=== PATIENT | male | born 1960 | race Caucasian/White ===

== ENCOUNTER → 2018-02-12 | Outpatient (CLI) | payer BC | END | disposition home or self-care (01) | LOC: US 06:51 | DX: R14.0 Abdominal distension (gaseous) (principal) | CPT/HCPCS: 76700 ==

== ENCOUNTER → 2018-03-08 | Day surgery (SDC) | payer BC ==
[~2018-03-08] MED LIST: LIDOCAINE 1% PF 2 ML VIAL. ID; LIDOCAINE 2% PF Vial for OR 5 ML VIAL.; MORPHINE SULFATE 4 MG/ML DISP.SYRIN. IV; ONDANSETRON PF 4 MG/2 ML VIAL. IV; PROCHLORPERAZINE 10 MG/2 ML VIAL. IV; PROPOFOL 40 ML IV; fentaNYL PF VIAL 100 MCG/2 ML VIAL IV
[2018-03-08] MEDS: IV RINGERS,LACTATED 1000ML 1,000 ML IV (11:42)
== END ==
LOC: ENDOS 11:09
DX: Z12.11 Encounter for screening for malignant neoplasm of colon (principal); K62.1 Rectal polyp; F17.200 Nicotine dependence, unspecified, uncomplicated; Z83.3 Family history of diabetes mellitus; Z82.49 Family history of ischemic heart disease and other diseases of the circulatory system; Z79.82 Long term (current) use of aspirin; Z85.51 Personal history of malignant neoplasm of bladder
CPT/HCPCS: 45380; 88305; J2704

== ENCOUNTER 2020-08-09 11:00 | Emergency (ER) | payer BC, OTHER ==
[~2020-08-09] VITALS: Ht 167.6 cm; Wt 79.7 kg
[~2020-08-09 11:00] MED LIST changes: +ASPI-482 PO; +ESOM40CA PO; +LEVO500T59 PO; -LIDOCAINE 1% PF 2 ML VIAL. ID; -LIDOCAINE 2% PF Vial for OR 5 ML VIAL.; -MORPHINE SULFATE 4 MG/ML DISP.SYRIN. IV; +OMEG500C PO; +OMEP20CA16 PO; -ONDANSETRON PF 4 MG/2 ML VIAL. IV; +OXYC1TAB15 PO; -PROCHLORPERAZINE 10 MG/2 ML VIAL. IV; -PROPOFOL 40 ML IV; +SULF1TAB24 PO; +TAMS0.4C97 PO; -fentaNYL PF VIAL 100 MCG/2 ML VIAL IV
--- NOTE | 2020-08-09 11:41 | PHYS DOC ---
Past Medical History Past Medical History: GERD Past Surgical History: Other Additional Past Surgical Histo: Back surgery. Smoking Status: Current Every Day Smoker Alcohol Use: Occasionally Drug Use: None General Adult EDM: Chief Complaint: DIZZY/LIGHT HEADED HPI: HPI: The history was obtained from the patient. Patient is a 59-year-old male with PMH dyspepsia who presents with a chief complaint of lightheadedness. Patient states he has had intermittent lightheadedness for the past 4 days. He states it seems to occur directly following meals or while eating. He states last night while eating dinner he became quite sweaty. He denies any chest pain at any point. Denies any shortness of breath. Denies any abdominal pain but does note some abdominal distention. States he takes Nexium daily. States that he is never had an endoscopy or colonoscopy before. Denies any blood in stool. Denies any changes to stool caliber or consistency. Denies nausea or vomiting. Does note increase in belching. Does note occasional acidic and metallic taste in his mouth. Denies alcohol, tobacco, or drug abuse. Denies any exertional chest pain at baseline. Does note that his father from heart disease at the age of 60. Denies any history of blood clot in the legs or lungs. Denies any swelling to the extremities. Denies any history of invasive cardiac testing. States that he does follow closely with a primary care physician. No other complaints. Review of Systems: Review of Systems: Constitutional: Denies fever or chills. [] Eyes: Denies change in visual acuity. [] HENT: Denies nasal congestion or sore throat. [] Respiratory: Denies cough or shortness of breath. [] Cardiovascular: Positive for lightheadedness GI: Denies abdominal pain, nausea, vomiting, bloody stools or diarrhea. [] : Denies dysuria. [] Musculoskeletal: Denies back pain or joint pain. [] Integument: Denies rash. [] Neurologic: Denies headache, focal weakness or sensory changes. [] Endocrine: Denies polyuria or polydipsia. [] Lymphatic: Denies swollen glands. [] Psychiatric: Denies depression or anxiety. [] Heart Score: HEART Score for Chest Pain: HEART Score for Chest Pain Response (Comments) Value History Slighlty/Non-Suspicious 0 ECG Normal 0 Age >45 - < 65 1 Risk Factors No Risk Factors 0 Troponin < Normal Limit 0 Total 1 Risk Factors: Risk Factors: DM, Current or recent (<one month) smoker, HTN, HLP, family history of CAD, obesity. Risk Scores: Score 0 - 3: 2.5% MACE over next 6 weeks - Discharge Home Score 4 - 6: 20.3% MACE over next 6 weeks - Admit for Clinical Observation Score 7 - 10: 72.7% MACE over next 6 weeks - Early Invasive Strategies Allergies: Allergies: Allergies Coded Allergies Type Severity Reaction Last Updated Verified No Known Drug Allergies 03/08/18 No Physical Exam: PE: Constitutional: Well developed, well nourished, no acute distress, non-toxic appearance. [] HENT: Normocephalic, atraumatic, bilateral external ears normal, oropharynx moist, no oral exudates, nose normal. [] Eyes: PERRLA, EOMI, conjunctiva normal, no discharge. [] Neck: Normal range of motion, no tenderness, supple, no stridor. [] Cardiovascular:Heart rate regular rhythm, no murmur [] Lungs & Thorax: Bilateral breath sounds clear to auscultation [] Abdomen: Soft, nontender, nonacute abdomen. No involuntary guarding or rigidity noted. No acute peritonitis. Skin: Warm, dry, no erythema, no rash. [] Back: No tenderness, no CVA tenderness. [] Extremities: No tenderness, no cyanosis, no clubbing, ROM intact, no edema. [] Neurologic: Alert and oriented X 3, normal motor function, normal sensory function, no focal deficits noted. [] Psychologic: Affect normal, judgement normal, mood normal. [] Current Patient Data: Labs: Laboratory Tests Test 08/09/20 11:27 Glucose (Fingerstick) 126 mg/dL (70-99) H Vital Signs: Vital Signs Date Time Temp Pulse Resp B/P (MAP) Pulse Ox O2 Delivery O2 Flow Rate FiO2 08/09/20 12:30 68 123/64 (83) 97 Room Air 08/09/20 12:00 68 21 131/73 (92) 99 Room Air 08/09/20 11:30 74 141/76 (97) 98 Room Air 08/09/20 11:04 97.8 77 18 162/77 (105) 98 Room Air 97.8 EKG: EKG: [] EKG consistent with normal sinus rhythm. Ventricular rate of 72 bpm. [place] normal. Small Q waves noted in lead III. No acute ischemic changes appreciated. Radiology/Procedures: Radiology/Procedures: [facility] [address] [place] [address] IMAGING REPORT Signed PATIENT: PETROS FARRELL ACCOUNT: [id number] : 1960 LOCATION: ER AGE: 59 SEX: M EXAM STATUS: REG ER ORD. PHYSICIAN: SEAN SAGE DO REASON: epigastric pain with eating. eval RUQ PROCEDURE: ABDOMEN LTD CLINICAL HISTORY: Reason: epigastric pain with eating. COMPARISON: None available. TECHNIQUE: Limited ultrasound examination of the right upper quadrant of the abdomen was performed FINDINGS: Visualized portions of the pancreas are unremarkable. Liver: The liver measures 17.5 cm in length in the right mid clavicular line. Increased hepatic echogenicity relative to the right kidney consistent with hepatic steatosis. There is no focal abnormality of the liver. Portal venous flow is confirmed. Gallbladder/Biliary: The gallbladder is normal in appearance without evidence for cholelithiasis. Echogenic material within the gallbladder likely sludge. There is no wall thickening or pericholecystic fluid. There is no pain with direct transducer pressure over the gallbladder.The common bile duct measures 0.4 cm. The right kidney measures 13 cm in bipolar length. No focal renal lesion. No hydronephrosis. No hydroureter. There is no free fluid in the subhepatic space. IMPRESSION: 1. Gallbladder sludge without evidence for acute cholecystitis. 2. Echogenic appearance of the liver likely fatty liver. Electronically signed by: Srinivas Shelton MD (08/09/2020 12:23 PM) [id number] DICTATED and SIGNED BY: SRINIVAS SHELTON MD DATE: 08/09/201222 [] Course & Med Decision Making: Course & Med Decision Making Pertinent Labs and Imaging studies reviewed. (See chart for details) [] Patient is a well-appearing 59-year-old male who presents with chief complaint of abdominal discomfort and lightheadedness after eating food over the past 3 days. Initial vital signs unremarkable. Exam overall reassuring. No reproducible abdominal tenderness. Basic labs were obtained and were unremarkable including normal troponin. Ultrasound does show some biliary and gallbladder sludge. I do feel this could explain his symptoms. Overall very low suspicion for ACS versus PE. Low risk heart score by my estimation. He states he does have close follow-up with his primary care physician. T imaging will be deferred as all labs been reassuring and examination reveals no reproducible pain. Patient is agreeable to discharge home. He will be discharged home with Bentyl and Zofran. Strict return precautions were discussed and understood. Stable for discharge home. Dragon Disclaimer: Dragon Disclaimer: This electronic medical record was generated, in whole or in part, using a voice recognition dictation system. Departure Departure Impression: Primary Impression: Lightheaded Additional Impression: Dyspepsia Disposition: HOME, SELF-CARE Condition: STABLE Referrals: NICOLE NIETO MD (PCP) Patient Instructions: Biliary Colic Additional Instructions: Please follow-up with your primary care physician in the next 2 to 3 days. Discharge Abdominal Pain Re-Check Precautions: I'm unsure of the specific cause of your abdominal pain. However, at this point I feel that you are low risk for a life threatening emergency and that disc harge from the Emergency Department is safe. There is a very small possibility that you are just too early in your clinical course for our physical exam/labs/imaging to ascertain whether or not you have an emergent condition that could potentially cause permanent disability or be life threatening. As such, it is very important that you follow up with your primary doctor or return to the Emergency Department in 12-24 hours for re-assessment and further evaluation if clinically indicated. If you develop new or worsening symptoms then you should return to the Emergency Department immediately. Home Care Instructions: Abdominal Pain Many things may cause abdominal pain. Your ER visit might not show the exact reason you are having pain. In some cases, additional time is needed to determine if the cause is serious. Therefore you may be told to go home and watch for any changes or worsening in your condition. Before that, we may not know if you need more testing, or if hospitalization or surgery is necessary. If its not something serious, the pain may go away without treatment or get better with simple things like avoiding certain foods or medications. In the ER, your doctor asks you questions, examines you and in some cases, may order tests. These help doctors decide if the pain is from something serious. Tests are not always done and may not provide a definite answer. There can still be a problem, even with normal test results. Abdominal pain may be caused by something serious (like appendicitis), which is not obvious right away. Because of this, another checkup is needed to make sure you are OK. It is VERY IMPORTANT to follow up for a repeat exam, especially if you have any symptoms that are not going away or are getting worse. We recommend that you RETURN TO THE EMERGENCY ROOM IN 8-12 HOURS to be rechecked. If you cannot, you may follow up with your primary care doctor or clinic. It is important that you follow all of the instructions below. RETURN TO THE EMERGENCY ROOM IMMEDIATELY IF: The pain does not go away or gets worse. You have a fever. You keep throwing up and cannot keep anything down. You pass bloody or black stools. You develop new symptoms. HOME CARE INSTRUCTIONS Come back to the ER (or see your doctor) in 8-12 hours. DO NOT take laxatives unless directed by your doctor. Avoid the use of alcohol Take pain medicine only as directed by your doctor. Only take [id number] or prescription medicine as directed by your doctor. Try a clear liquid diet (broth, tea, jello, water) for the next 12-24 hours. Slowly move to a bland diet as tolerated. Do not eat greasy, fatty or spicy foods. Once you start getting better, go back to a normal, healthy diet, slowly over a few days. DISCHARGE PT INSTRUCTIONS: YOU HAVE BEEN EVALUATED FOR ABDOMINAL PAIN. HOWEVER, WE ARE UNABLE TO PROVIDE A DEFINITE CAUSE OF YOUR SYMPTOMS. EVEN THOUGH YOUR TESTS MAY HAVE BEEN NORMAL, YOU STILL COULD HAVE A SERIOUS CAUSE FOR YOUR ABDOMINAL PAIN, INCLUDING APPENDICITIS. THE BEST TEST TO DETERMINE IF YOU HAVE A SERIOUS CAUSE IS RE-EXAMINATION OVER TIME. WE USED TO ADMIT PATIENTS TO THE HOSPITAL FOR THIS, BUT CAN NOW ALLOW YOU TO GO HOME, & RETURN TO OUR ER THE NEXT DAY FOR RE- EXAMINATION. THUS, WE WOULD LIKE YOU TO RETURN TO OUR ER TOMORROW FOR YOUR RE- EVALUATION. (IF YOUR SYMPTOMS HAVE GONE AWAY, THEN YOU DO NOT NEED TO RETURN.) IF YOUR SYMPTOMS GET WORSE BETWEEN NOW & THEN, YOU SHOULD RETURN IMMEDIATELY & NOT WAIT UNTIL TOMORROW. SYMPTOMS TO LOOK FOR WORSENING PAIN, HIGH FEVER, PERSISTENT VOMITING [NOT CONTROLLED BY MEDICINE], AND/OR OVERALL WORSENING OF YOUR CONDITION. Scripts Ondansetron Hcl (ZOFRAN) 4 Mg Tablet 4 MG PO PRN TID PRN for NAUSEA, #15 nausea/vomiting Prov: SEAN SAGE DO 08/09/20 Dicyclomine Hcl (DICYCLOMINE HCL) 20 Mg Tablet 1 TAB PO QID for 7 Days, #28 TAB 1 Refill Prov: SEAN SAGE DO 08/09/20 Justicifation of Admission Dx: Justifications for Admission: Justification of Admission Dx: N/A SEAN SAGE DO Aug 09, 2020 11:41
[2020-08-09 12:03] LABS: BASO # 0.1 x10^3/uL (0.0-0.2); BASO % 1 % (0-3); EOS # 0.1 x10^3/uL (0.0-0.7); EOS % 1 % (0-3); HEMATOCRIT 48.6 % (39.0-53.0); HEMOGLOBIN 17.1 g/dL (13.0-17.5); LYMPH # 2.4 x10^3/uL (1.0-4.8); LYMPH % 23 % (24-48); MEAN CORPUSCULAR HEMOGLOBIN 31 pg (25-35); MEAN CORPUSCULAR HGB CONC 35 g/dL (31-37); MEAN CORPUSCULAR VOLUME 88 fL (79-100); MONO # 0.8 x10^3/uL (0.0-1.1); MONO % 8 % (0-9); NEUT # 7.2 x10^3/uL (1.8-7.7); NEUT % 68 % (31-73); PLATELET COUNT 151 x10^3/uL (140-400); RED BLOOD COUNT 5.52 x10^6/uL (4.30-5.70); RED CELL DISTRIBUTION WIDTH 12.7 % (11.5-14.5); WHITE BLOOD COUNT 10.6 x10^3/uL (4.0-11.0)
[2020-08-09 12:18] LABS: CALCIUM 9.4 mg/dL (8.5-10.1); CREATININE 0.9 mg/dL (0.7-1.3); GFR 85.8; POTASSIUM 4.2 mmol/L (3.5-5.1)
[2020-08-09 12:23] LABS: ALBUMIN 3.8 g/dL (3.4-5.0); TOTAL BILIRUBIN 0.7 mg/dL (0.2-1.0); TOTAL PROTEIN 7.6 g/dL (6.4-8.2)
--- NOTE | 2020-08-09 12:26 | RAD ---
CLINICAL HISTORY: Reason: epigastric pain with eating. COMPARISON: None available. TECHNIQUE: Limited ultrasound examination of the right upper quadrant of the abdomen was performed FINDINGS: Visualized portions of the pancreas are unremarkable. Liver: The liver measures 17.5 cm in length in the right mid clavicular line. Increased hepatic echogenicity relative to the right kidney consistent with hepatic steatosis. There is no focal abnormality of the liver. Portal venous flow is confirmed. Gallbladder/Biliary: The gallbladder is normal in appearance without evidence for cholelithiasis. Echogenic material within the gallbladder likely sludge. There is no wall thickening or pericholecystic fluid. There is no pain with direct transducer pressure over the gallbladder.The common bile duct measures 0.4 cm. The right kidney measures 13 cm in bipolar length. No focal renal lesion. No hydronephrosis. No hydroureter. There is no free fluid in the subhepatic space. IMPRESSION: 1. Gallbladder sludge without evidence for acute cholecystitis. 2. Echogenic appearance of the liver likely fatty liver. Electronically signed by: Srinivas Gray MD (08/09/2020 12:23 PM) [id number]
[2020-08-09 13:00] VITALS: BP 114/69
[2020-08-09] MEDS ORDERED: ONDA4TAB7 PO (13:04)
[2020-08-09] MEDS ORDERED: DICY20TA3 PO (13:04)
== END 2020-08-09 13:35 | disposition home or self-care (01) ==
LOC: ER 11:00
DX: R42 Dizziness and giddiness (principal); R10.13 Epigastric pain
CPT/HCPCS: 36415; 76705; 80053; 82962; 83690; 84484; 85025; 99285

== ENCOUNTER 2020-08-12 09:45 | Emergency (ER) | payer OTHER ==
[~2020-08-12] VITALS: Ht 170.2 cm; Wt 77.2 kg
[~2020-08-12 09:45] MED LIST changes: +DICY20TA3 PO; +ONDA4TAB7 PO
[2020-08-12 11:01] LABS: BASO # 0.1 x10^3/uL (0.0-0.2); BASO % 1 % (0-3); EOS # 0.1 x10^3/uL (0.0-0.7); EOS % 1 % (0-3); HEMATOCRIT 47.9 % (39.0-53.0); HEMOGLOBIN 16.7 g/dL (13.0-17.5); LYMPH # 2.5 x10^3/uL (1.0-4.8); LYMPH % 27 % (24-48); MEAN CORPUSCULAR HEMOGLOBIN 31 pg (25-35); MEAN CORPUSCULAR HGB CONC 35 g/dL (31-37); MEAN CORPUSCULAR VOLUME 87 fL (79-100); MONO # 0.8 x10^3/uL (0.0-1.1); MONO % 8 % (0-9); NEUT # 5.9 x10^3/uL (1.8-7.7); NEUT % 64 % (31-73); PLATELET COUNT 154 x10^3/uL (140-400); RED BLOOD COUNT 5.48 x10^6/uL (4.30-5.70); RED CELL DISTRIBUTION WIDTH 12.6 % (11.5-14.5); WHITE BLOOD COUNT 9.3 x10^3/uL (4.0-11.0)
[2020-08-12 11:10] LABS: CALCIUM 9.5 mg/dL (8.5-10.1); GFR 75.7; POTASSIUM 3.9 mmol/L (3.5-5.1)
[2020-08-12 11:11] LABS: PROTHROMBIN TIME PATIENT 12.9 SEC (11.7-14.0)
[2020-08-12 11:15] LABS: ALBUMIN/GLOBULIN RATIO 1.1 (1.0-1.7); TOTAL BILIRUBIN 0.7 mg/dL (0.2-1.0); TOTAL PROTEIN 7.7 g/dL (6.4-8.2)
[2020-08-12] MEDS ORDERED: LIDO:MAALOX 1:1 20 ML SINGLE DOSE. SWSW ONE (12:15)
[2020-08-12] MEDS ORDERED: IOHEXOL 300 MG/ML 100ML VIAL. IV ONE (12:15)
--- NOTE | 2020-08-12 12:35 | RAD ---
RS Compliance Statement: One or more of the following individualized dose reduction techniques were utilized for this examination: 1. Automated exposure control 2. Adjustment of the mA and/or kV according to patient size 3. Use of iterative reconstruction technique CT HEAD WITHOUT CONTRAST History: Reason: dizziness off and on for a week Comparison: None. Procedure: Axial images are obtained of the head from the skull base through the vertex without IV contrast. Findings: The ventricles and sulci are normal for the patient's age. No mass-effect, midline shift, hemorrhage, extra-axial fluid collection, or obvious acute infarction is identified. Basilar cisterns are patent. Bone windows demonstrate no acute calvarial abnormality. The visualized paranasal sinuses are clear. Mastoid air cells are well aerated. IMPRESSION: No acute intracranial abnormality. Electronically signed by: Carlos Couch MD (08/12/2020 12:32 PM) [id number]
--- NOTE | 2020-08-12 12:46 | RAD ---
EXAM: CT Abdomen and Pelvis with IV contrast INDICATION: Reason: abdominal pain for a week / Spl. Instructions: [id number] 75ml, hx bladder ca w surgery / History: TECHNIQUE: Multi-detector row CT images were acquired from the lung bases through the abdomen and pelvis with the use of IV contrast. Sagittal and coronal images were acquired from the transaxial data. All CT scans performed at this facility utilize dose optimization techniques as appropriate to the exam, including the following: Automated exposure control and adjustment of the mA and/or KV according to patient size (this includes techniques or standardized protocols for targeted exams where dose is indication/reason for exam). IV CONTRAST: Administered ORAL CONTRAST: Not administered COMPARISON: Noncontrast abdomen pelvis CT of 12/04/2015 FINDINGS: LOWER CHEST: Stable lingular hamartoma. LIVER: Unremarkable BILIARY SYSTEM: Gallbladder is unremarkable. Bile ducts are not dilated. PANCREAS: Unremarkable SPLEEN: Unremarkable ADRENALS: Unremarkable KIDNEYS & URETERS: Interval development of bilateral renal cortical scarring, worse on the left but no mass, abnormal enhancement or hydronephrosis or hydroureter is seen. No radiopaque stones identified on this study with IV contrast limiting sensitivity for detection of small kidney stones. BLADDER: Unremarkable REPRODUCTIVE ORGANS: The prostate gland measures 4.5 cm in diameter. GASTROINTESTINAL: The stomach, small bowel, and colon are unremarkable. The appendix is normal. 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 IMPRESSION: No acute abdominal or pelvic pathology. No specific findings to explain abdominal pain noted. Electronically signed by: Aisha Amaral MD (08/12/2020 12:43 PM) [id number]
--- NOTE | 2020-08-12 13:01 | PHYS DOC ---
Past Medical History Past Medical History: Cancer, GERD, Other Additional Past Medical Histor: BLADDER CA Past Surgical History: Other Additional Past Surgical Histo: Back surgery,BLADDER Smoking Status: Current Every Day Smoker Alcohol Use: Occasionally Drug Use: None General Adult EDM: Chief Complaint: ABDOMINAL PAIN HPI: HPI: Patient is a 60 year old male who presented to ER today for evaluation of epigastric abdominal pain associated with feeling dizzy and dry mouth. Patient said pain is burning and aching in nature. Pain happened after eating. Patient has experienced this symptom off and on for several weeks. Patient was seen here on last Monday on August 09 for same problem. Patient had lab work and ultrasound of his gallbladder show he has some fatty liver but no gallstone problem. Patient was discharged home, was on Bentyl and nausea medication. Patient is already on Nexium for acid reflux. Patient went to see his family physician who ordered an outpatient stress test and is scheduled for sometime next week. Patient denies any history of heart problem, denies any history of blood clot disorder. Patient denies any family history of Heart disease. He denies drinking alcohol. Patient denies any recent travel or operation. Patient said this morning after drinking coffee and eating a muffin patient started having epigastric pain feeling sweaty so he came in for evaluation. Review of Systems: Review of Systems: Constitutional: Denies fever or chills. [] Eyes: Denies change in visual acuity. [] HENT: Denies nasal congestion or sore throat. [] Respiratory: Denies cough or shortness of breath. [] Cardiovascular: Denies chest pain or edema. [] GI: Denies abdominal pain, nausea, vomiting, bloody stools or diarrhea. [] : Denies dysuria. [] Musculoskeletal: Denies back pain or joint pain. [] Integument: Denies rash. [] Neurologic: Denies headache, focal weakness or sensory changes. [] Endocrine: Denies polyuria or polydipsia. [] Lymphatic: Denies swollen glands. [] Psychiatric: Denies depression or anxiety. [] Heart Score: HEART Score for Chest Pain: HEART Score for Chest Pain Response (Comments) Value History Slighlty/Non-Suspicious 0 ECG Normal 0 Age >45 - < 65 1 Risk Factors 1 or 2 Risk Factors 1 Troponin < Normal Limit 0 Total 2 Risk Factors: Risk Factors: DM, Current or recent (<one month) smoker, HTN, HLP, family history of CAD, obesity. Risk Scores: Score 0 - 3: 2.5% MACE over next 6 weeks - Discharge Home Score 4 - 6: 20.3% MACE over next 6 weeks - Admit for Clinical Observation Score 7 - 10: 72.7% MACE over next 6 weeks - Early Invasive Strategies Current Medications: Current Medications Medications (Trade) Dose Ordered Sig/Esequiel Start Time Stop Time Status Last Admin Dose Admin Iohexol (Omnipaque 300 Mg/ml) 75 ml 1X ONCE 08/12/20 12:15 08/12/20 12:16 DC 08/12/20 12:28 75 ML Multi-Ingredient Mouthwash/Gargle (Gi Cocktail) 20 ml 1X ONCE 08/12/20 12:15 08/12/20 12:16 DC 08/12/20 12:13 20 ML Allergies: Allergies: Allergies Coded Allergies Type Severity Reaction Last Updated Verified No Known Drug Allergies 03/08/18 No Physical Exam: PE: Constitutional: Well developed, well nourished, no acute distress, non-toxic appearance. [] HENT: Normocephalic, atraumatic, bilateral external ears normal, oropharynx moist, no oral exudates, nose normal. [] Eyes: PERRLA, EOMI, conjunctiva normal, no discharge. [] Neck: Normal range of motion, no tenderness, supple, no stridor. [] Cardiovascular:Heart rate regular rhythm, no murmur [] Lungs & Thorax: Bilateral breath sounds clear to auscultation [] Abdomen: Bowel sounds normal, soft, no tenderness, no masses, no pulsatile masses. [] Skin: Warm, dry, no erythema, no rash. [] Back: No tenderness, no CVA tenderness. [] Extremities: No tenderness, no cyanosis, no clubbing, ROM intact, no edema. [] Neurologic: Alert and oriented X 3, normal motor function, normal sensory f unction, no focal deficits noted. [] Psychologic: Affect normal, judgement normal, mood normal. [] Current Patient Data: Labs: Laboratory Tests Test 08/12/20 10:40 White Blood Count 9.3 x10^3/uL (4.0-11.0) Red Blood Count 5.48 x10^6/uL (4.30-5.70) Hemoglobin 16.7 g/dL (13.0-17.5) Hematocrit 47.9 % (39.0-53.0) Mean Corpuscular Volume 87 fL (79-100) Mean Corpuscular Hemoglobin 31 pg (25-35) Mean Corpuscular Hemoglobin Concent 35 g/dL (31-37) Red Cell Distribution Width 12.6 % (11.5-14.5) Platelet Count 154 x10^3/uL (140-400) Neutrophils (%) (Auto) 64 % (31-73) Lymphocytes (%) (Auto) 27 % (24-48) Monocytes (%) (Auto) 8 % (0-9) Eosinophils (%) (Auto) 1 % (0-3) Basophils (%) (Auto) 1 % (0-3) Neutrophils # (Auto) 5.9 x10^3/uL (1.8-7.7) Lymphocytes # (Auto) 2.5 x10^3/uL (1.0-4.8) Monocytes # (Auto) 0.8 x10^3/uL (0.0-1.1) Eosinophils # (Auto) 0.1 x10^3/uL (0.0-0.7) Basophils # (Auto) 0.1 x10^3/uL (0.0-0.2) Prothrombin Time 12.9 SEC (11.7-14.0) Prothrombin Time INR 1.0 (0.8-1.1) Activated Partial Thromboplast Time 29 SEC (24-38) Sodium Level 137 mmol/L (136-145) Potassium Level 3.9 mmol/L (3.5-5.1) Chloride Level 103 mmol/L (98-107) Carbon Dioxide Level 28 mmol/L (21-32) Anion Gap 6 (6-14) Blood Urea Nitrogen 15 mg/dL (8-26) Creatinine 1.0 mg/dL (0.7-1.3) Estimated GFR (Cockcroft-Gault) 75.7 BUN/Creatinine Ratio 15 (6-20) Glucose Level 109 mg/dL (70-99) H Calcium Level 9.5 mg/dL (8.5-10.1) Magnesium Level 2.0 mg/dL (1.8-2.4) Total Bilirubin 0.7 mg/dL (0.2-1.0) Aspartate Amino Transferase (AST) 29 U/L (15-37) Alanine Aminotransferase (ALT) 39 U/L (16-63) Alkaline Phosphatase 49 U/L (46-116) Troponin I Quantitative < 0.017 ng/mL (0.000-0.055) Total Protein 7.7 g/dL (6.4-8.2) Albumin 4.0 g/dL (3.4-5.0) Albumin/Globulin Ratio 1.1 (1.0-1.7) Laboratory Tests 08/12/20 10:40 Laboratory Tests 08/12/20 10:40 Vital Signs: Vital Signs Date Time Temp Pulse Resp B/P (MAP) Pulse Ox O2 Delivery O2 Flow Rate FiO2 08/12/20 10:18 97.8 70 15 140/83 (102) 96 Room Air 97.8 EKG: EKG: EKG was done at 1025, heart rate of 68 bpm, normal sinus rhythm, no ST segment elevation. Radiology/Procedures: Radiology/Procedures: [][facility] [address] [place] [address] IMAGING REPORT Signed PATIENT: PETROS FARRELL ACCOUNT: [id number] : 1960 LOCATION: ER AGE: 60 SEX: M EXAM STATUS: REG ER ORD. PHYSICIAN: KELI MOROCHO DO REASON: abdominal pain for a week PROCEDURE: CT ABD PELV W/ IV CONTRST ONLY EXAM: CT Abdomen and Pelvis with IV contrast INDICATION: Reason: abdominal pain for a week / Spl. Instructions: [id number] 75ml, hx bladder ca w surgery / History: TECHNIQUE: Multi-detector row CT images were acquired from the lung bases through the abdomen and pelvis with the use of IV contrast. Sagittal and coronal images were acquired from the transaxial data. All CT scans performed at this facility utilize dose optimization techniques as appropriate to the exam, including the following: Automated exposure control and adjustment of the mA and/or KV according to patient size (this includes techniques or standardized protocols for targeted exams where dose is indication/reason for exam). IV CONTRAST: Administered ORAL CONTRAST: Not administered COMPARISON: Noncontrast abdomen pelvis CT of 12/04/2015 FINDINGS: LOWER CHEST: Stable lingular hamartoma. LIVER: Unremarkable BILIARY SYSTEM: Gallbladder is unremarkable. Bile ducts are not dilated. PANCREAS: Unremarkable SPLEEN: Unremarkable ADRENALS: Unremarkable KIDNEYS & URETERS: Interval development of bilateral renal cortical scarring, worse on the left but no mass, abnormal enhancement or hydronephrosis or hydroureter is seen. No radiopaque stones identified on this study with IV contrast limiting sensitivity for detection of small kidney stones. BLADDER: Unremarkable REPRODUCTIVE ORGANS: The prostate gland measures 4.5 cm in diameter. GASTROINTESTINAL: The stomach, small bowel, and colon are unremarkable. The appendix is normal. 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 IMPRESSION: No acute abdominal or pelvic pathology. No specific findings to explain abdominal pain noted. Electronically signed by: Osorio Amaral MD (08/12/2020 12:43 PM) [id number] DICTATED and SIGNED BY: OSORIO AMARAL MD DATE: 08/12/20 1243 [facility] [address] [place] [address] IMAGING REPORT Signed PATIENT: PETROS FARRELL ACCOUNT: [id number] : 1960 LOCATION: ER AGE: 60 SEX: M EXAM STATUS: REG ER ORD. PHYSICIAN: KELI MOROCHO DO REASON: dizziness off and on for a week PROCEDURE: CT HEAD WO CONTRAST PQRS Compliance Statement: One or more of the following individualized dose reduction techniques were utilized for this examination: 1. Automated exposure control 2. Adjustment of the mA and/or kV according to patient size 3. Use of iterative reconstruction technique CT HEAD WITHOUT CONTRAST History: Reason: dizziness off and on for a week Comparison: None. Procedure: Axial images are obtained of the head from the skull base through the vertex without IV contrast. Findings: The ventricles and sulci are normal for the patient's age. No mass-effect, midline shift, hemorrhage, extra-axial fluid collection, or obvious acute infarction is identified. Basilar cisterns are patent. Bone windows demonstrate no acute calvarial abnormality. The visualized paranasal sinuses are clear. Mastoid air cells are well aerated. IMPRESSION: No acute intracranial abnormality. Electronically signed by: Carlos Couch MD (08/12/2020 12:32 PM) [id number] DICTATED and SIGNED BY: CARLOS COUCH MD DATE: 08/12/20 1232 Course & Med Decision Making: Course & Med Decision Making Pertinent Labs and Imaging studies reviewed. (See chart for details) Patient is a 60-year-old male who presented to ER due to epigastric abdominal pain off and on for several weeks. Patient was seen here last Monday for the same problem, ultrasound did not show any gallstone formation. His lab work was within normal limits. Patient was seen by his family physician, is scheduled for outpatient stress test. CT scan of head head and hip abdomen pelvis today did not show any acute problem. Patient has history of acid reflux, he is on Nexium. It is suspected that patient has gastritis, uppercase of peptic ulcer. Patient will be at Carafate and Pepcid. Patient will need to take Nexium, Carafate and Pepcid together. Patient will need to follow-up with his family physician for referral to GI specialist for an EGD. Dragon Disclaimer: Dragon Disclaimer: This electronic medical record was generated, in whole or in part, using a voice recognition dictation system. Departure Departure Impression: Primary Impression: Gastritis Disposition: 01 HOME, SELF-CARE Condition: STABLE Referrals: NICOLE NIETO MD (PCP) PLEASE FOLLOW UP WITH YOUR DOCTOR FOR A REFERRAL TO A GI SPECIALIST FOR FURTHER EVALUATION AND TREATMENT Patient Instructions: Gastritis, Adult Additional Instructions: Thank you for visiting our Emergency Department. We appreciate you trusting us with your care. If any additional problems come up don't hesitate to return to visit us. Please follow up with your primary care provider so they can plan additional care if needed and know about the problem that you had. If symptoms worsen come back to the Emergency Department. Any concerning symptoms that start such as chest pain, shortness of air, weakness or numbness on one side of the body, running high fevers or any other concerning symptoms return to the ER. Scripts Famotidine (PEPCID) 20 Mg Tablet 20 MG PO HS for 30 Days, #30 TAB Prov: KELI MOROCHO DO 08/12/20 Sucralfate (CARAFATE) 1 Gm Tablet 1 TAB PO QID for 14 Days, #56 TAB 0 Refills Prov: KELI MOROCHO DO 08/12/20 Justicifation of Admission Dx: Justifications for Admission: Justification of Admission Dx: N/A KELI MOROCHO DO Aug 12, 2020 13:01
[2020-08-12] MEDS ORDERED: SUCR1TAB35 PO (13:17)
[2020-08-12] MEDS ORDERED: FAMO-63 PO (13:17)
[2020-08-12 13:24] VITALS: BP 114/67
--- NOTE | 2020-08-12 14:28 | EKG ---
[facility] [address] [place] [address] Test Date: 2020-08-12 Test Time: 10:25:07 Pat Name: PETROS FARRELL Department: Room: Gender: Hide Salter: : 1960 Requested By: KELI MOROCHO Order Number: [id number] Reading MD: Measurements Intervals [place] Rate: 68 P: 26 WY: 142 QRS: 56 QRSD: 98 T: 29 QT: 378 QTc: 402 Interpretive Statements SINUS RHYTHM NORMAL ECG RI6.02 No previous ECG available for comparison
== END 2020-08-12 13:45 | disposition home or self-care (01) ==
LOC: ER 09:45
DX: K29.70 Gastritis, unspecified, without bleeding (principal); R42 Dizziness and giddiness; K21.9 Gastro-esophageal reflux disease without esophagitis; F17.200 Nicotine dependence, unspecified, uncomplicated; Z85.51 Personal history of malignant neoplasm of bladder
CPT/HCPCS: 36415; 70450; 74177; 80053; 83735; 84484; 85025; 85610; 85730; 93005; 99285; Q9967

== ENCOUNTER → 2020-09-17 | Outpatient (CLI) | payer OTHER ==
[~2020-09-17] VITALS: Ht 170.2 cm; Wt 77.1 kg
[~2020-09-17] MED LIST changes: +FAMO-63 PO; +SINCALIDE 1.54 MCG in IV NORMAL SALINE 50ML 30 ML IV ONE; +SUCR1TAB35 PO
--- NOTE | 2020-09-17 11:12 | RAD ---
EXAM: Nuclear hepatobiliary scan. HISTORY: Epigastric pain. TECHNIQUE: Following intravenous administration of 5.5 mCi Tc 99m Choletec, anterior images of the abdomen were obtained at five minute intervals through one hour. Subsequently, 1.54 mcg sincalide was administered and additional images to assess gallbladder ejection fraction were obtained. FINDINGS: There is prompt radiotracer uptake by the liver. No focal defect is seen. There is normal excretion into the biliary tree. The gallbladder is visualized within 5 minutes and there is free flow into the duodenum. The gallbladder ejection fraction is 20 percent. IMPRESSION: Decreased gallbladder ejection fraction of 20 percent. Electronically signed by: Nikole Manjarrez MD (09/17/2020 11:09 AM) [id number]
== END ==
LOC: NM 09:11
PROVIDERS: ATTEND Internal Medicine Gastroenterology
DX: R10.13 Epigastric pain (principal)
CPT/HCPCS: 78227; A9537; J2805

== ENCOUNTER → 2020-09-21 | Outpatient (CLI) | payer OTHER ==
[~2020-09-21] MED LIST changes: +REGADENOSON 0.4 MG/5 ML DISP.SYRIN. IV ONE; -SINCALIDE 1.54 MCG in IV NORMAL SALINE 50ML 30 ML IV ONE
--- NOTE | 2020-09-21 12:05 | CARD ---
MR#: [id number] Date of Study: 09/21/2020 Ordering Physician: MARKUS SMITH, Referring Physician: MARKUS SMITH, Tech: Christen Villafana APPROVED REPORT EXAM: Two-dimensional and M-mode echocardiogram with Doppler and color Doppler. Other Information Quality : AverageHR: 72bpm INDICATION Chest Pain RISK FACTORS Smoking 2D DIMENSIONS RVDd3.8 (2.9-3.5cm)Left Atrium(2D)3.2 (1.6-4.0cm) IVSd0.9 (0.7-1.1cm)Aortic Root(2D)3.6 (2.0-3.7cm) LVDd4.8 (3.9-5.9cm)LVOT Diameter2.2 (1.8-2.4cm) PWd0.8 (0.7-1.1cm)LVDs2.7 (2.5-4.0cm) FS (%) 43.8 %SV81.4 ml LVEF(%)74.9 (>50%) Aortic Valve AoV Peak Everette.102.2cm/sAoV VTI16.8cm AO Peak GR.4.2mmHgLVOT Peak Everette.87.6cm/s LVOT VTI 16.89cmAO Mean GR.2mmHg AMANDA (VMAX)2.76wa9FNS (VTI)3.69cm2 AI P 1/2 Qjnr023zl Mitral Valve MV E Skljvbyg80.8cm/sMV DECEL ESRH393zm MV A Hxvokrks68.9cm/sMV E Mean Gr.1mmHg MV DMU62xyT/A Ratio0.7 MVA (PHT)4.52cm2 TDI E/Lateral E'4.9E/Medial E'6.6 Pulmonary Valve PV Peak Umsyklle87.8cm/sPV Peak Grad.4mmHg Tricuspid Valve TR P. Aagwlfbd321si/sRAP DWUAVXQB4suFx TR Peak Gr.55nbSwOGLJ16wxIa Pulmonary Vein S1 Wzruvfbp76.5cm/sD2 Jkpfrcvq59.5cm/s PVa ivsobvhe575ekzf LEFT VENTRICLE The left ventricle is normal size. There is normal left ventricular wall thickness. The left ventricu lar systolic function is normal and the ejection fraction is within normal range. The Ejection Fracti on is 50-55%. There is normal LV segmental wall motion. Transmitral Doppler flow pattern is Grade I-a bnormal relaxation pattern. RIGHT VENTRICLE The right ventricle is normal size. There is normal right ventricular wall thickness. The right ventr icular systolic function is normal. ATRIA The left atrium size is normal. The right atrium size is normal. The interatrial septum is intact wit h no evidence for an atrial septal defect or patent foramen ovale as noted on 2-D or Doppler imaging. AORTIC VALVE The aortic valve is normal in structure and function. Doppler and Color Flow revealed trace aortic re gurgitation. There is no significant aortic valvular stenosis. Calculated aortic valve area is 3.11 c m2 with maximum pressure gradient of 5 mmHg and mean pressure gradient of 3 mmHg. MITRAL VALVE The mitral valve is normal in structure and function. There is no evidence of mitral valve prolapse. There is no mitral valve stenosis. Doppler and Color-flow revealed trace mitral regurgitation. TRICUSPID VALVE The tricuspid valve is normal in structure and function. Doppler and Color Flow revealed trace tricus pid regurgitation with an estimated PAP of 33 mmHg. There is no tricuspid valve stenosis. PULMONIC VALVE The pulmonic valve is not well visualized. Doppler and Color Flow revealed no pulmonic valvular regur gitation. There is no pulmonic valvular stenosis. GREAT VESSELS The aortic root is normal in size. The IVC is normal in size and collapses >50% with inspiration. PERICARDIAL EFFUSION There is no evidence of significant pericardial effusion. Critical Notification Critical Value: No <Conclusion> The left ventricular systolic function is normal and the ejection fraction is within normal range. Th e Ejection Fraction is 50-55%. There is normal LV segmental wall motion. Signed by : Dinesh Escobar, Electronically Approved : 09/21/2020 12:05:09
--- NOTE | 2020-09-21 13:03 | RAD ---
MR#: [id number] Date of Study: 09/21/2020 Ordering Physician: MARKUS SMITH, Referring Physician: WILBER OJEDA Tech: RITA Freed, ARRT (R) (N) APPROVED REPORT Test Type: Pharmacological Stress Nurse/Tech: Mona Parr R.N. Test Indications: chest pain Cardiac History: Family history Medications: See Electronic Medical Record Medical History: See Electronic Medical Record Resting ECG: NSR Resting Heart Rate: 69 bpm Resting Blood Pressure: 120/65mmHg Pretest Chest Pain: No chest pain Nurse/Tech Notes S1S2, lungs sound clear Consent: The procedure was explained to the patient in lay terms. Informed consent was witnessed. Chetan eout was entered into CME. History and Stress Test performed by Mona Parr R.N. Pharm. Details Pharmacologic stress testing was performed using 0.4mg per 5ml of regadenoson given intravenously ove r 7-10 seconds. Stress Symptoms No chest pain or symptoms. POST EXERCISE Reason for Termination: Infusion complete Target HR: 134 Max HR: 97 bpm Max Blood Pressure: 125/55mmHg Blood Pressure response to exercise: Normal blood pressure response during stress. Chest Pain: No. Arrhythmia: No. ST Change: No. INTERPRETATION Stress EKG Conclusion: No evidence of stress induced EKG changes. Imaging Protocol IMAGE PROTOCOL: Rest Tc-99m/stress Tc-99m 1 day Rest: Stress: Viability: Radiopharm.Tc99m LvewscazpZq14h Sestamibi Tfdu73jAd 33mCi Img Date 09/21/2020 09/21/2020 Inj-Img Zlpb14qtf. 90min. Rest Admin Site:IV - Right AntecubitalAdministrator:RT Breann (R)(N) Stress Admin Site: IV - Right AntecubitalAdministrator: RT Breann (R)(N) STRESS DATA End Diast. Vol.83.0mlLVEDV index BSA44.0ml End Syst. Vol.21.0mlLVESV index BSA11.0ml Myocardial Omzr285.0gEject. Fblzkzoa16.0% Stress Scores Regional WT2.00Summed WT10.00 Regional WM0.00Summed WM3.00 The rest and stress images show normal perfusion, normal contraction and thickening. LV Perf. Quant 17 Seg. SSS1.00 17 Seg. SRS3.00 17 Seg. SDS0.00 Stress Defect Extent (% LAD)0.00Rest Defect Extent (% LAD)0.00Rev. Defect Extent (% LAD)0.00 Stress Defect Extent (% LCX) 0.00Rest Defect Extent (% LCX)0.00Rev. Defect Extent (% LCX)0.00 Stress Defect Extent (% RCA)0.00Rest Defect Extent (% RCA)4.40Rev. Defect Extent (% RCA)0.00 Stress Defect Extent (% WALLACE)0.00Rest Defect Extent (% WALLACE)0.90Rev. Defect Extent (% WALLACE)0.00 Other Information Quality:Good Risk Assessment: Low Risk Conclusion 1. No evidence of EKG changes with stress testing. 2. Normal perfusion at stress/rest. 3. Low risk study. 4. EF > 60%. Signed by : Dinesh Escobar, Electronically Approved : 09/21/2020 13:02:49
== END ==
LOC: NM 09:20
PROVIDERS: ATTEND Internal Medicine Cardiovascular Disease
DX: R07.9 Chest pain, unspecified (principal)
CPT/HCPCS: 78452; 93017; 93306; A9500; J2785

== ENCOUNTER 2021-06-21 06:04 | Day surgery (SDC) | payer BC ==
[~2021-06-21] VITALS: Ht 167.6 cm; Wt 77.0 kg
[~2021-06-21 06:04] MED LIST changes: +HYDROmorphone 2 MG/ML VIAL IVP PRN; +IV RINGERS,LACTATED 1000ML 1,000 ML IV SCH; +MORPHINE SULFATE 2 MG/ML INJ. IVP PRN; +PROCHLORPERAZINE 10 MG/2 ML VIAL. IVP PRN; -REGADENOSON 0.4 MG/5 ML DISP.SYRIN. IV ONE; +fentaNYL PF VIAL 100 MCG/2 ML VIAL IVP PRN
[2021-06-21 06:36] VITALS: BP 146/75
[2021-06-21] MEDS ORDERED: PROPOFOL 10 MG/ML (20ML) VIAL. IV ONE (07:00)
[2021-06-21] MEDS ORDERED: fentaNYL PF VIAL 250 MCG/5 ML VIAL ONE (07:00)
[2021-06-21] MEDS ORDERED: LIDOCAINE 1% PF 5 ML VIAL. ONE (07:00)
[2021-06-21] MEDS ORDERED: ROCURONIUM 50 MG/5 ML VIAL. ONE (07:01)
[2021-06-21] MEDS ORDERED: GLYCOPYRROLATE 1 MG/5 ML VIAL. ONE (07:01)
[2021-06-21] MEDS ORDERED: NEOSTIGMINE METHYLSULFATE 5 MG/5 ML SYRINGE. ONE (07:01)
[2021-06-21] MEDS ORDERED: ONDANSETRON PF 4 MG/2 ML VIAL. ONE (07:01)
[2021-06-21] MEDS ORDERED: DEXAMETHASONE SOD PHOS 4 MG/ML VIAL ONE (07:01)
[2021-06-21] MEDS ORDERED: SUCCINYLCHOLINE 200 MG/10 ML VIAL. ONE (07:01)
[2021-06-21] MEDS ORDERED: BUPIVACAINE MPF 0.5% 30 ML VIAL. ONE (07:08)
[2021-06-21] MEDS ORDERED: SURGICEL HEMOSTAT 4X8 EACH. ONE (07:08)
[2021-06-21] MEDS ORDERED: IOHEXOL 300 MG/ML 50 ML VIAL. ONE (07:08)
[2021-06-21] MEDS ORDERED: KETOROLAC 30 MG/ML VIAL. ONE (07:49)
--- NOTE | 2021-06-21 08:27 | RAD ---
EXAM: INTRAOPERATIVE CHOLANGIOGRAM. HISTORY: Gallbladder disease. Intraoperative cholangiogram with cholecystectomy. COMPARISON: None. FINDINGS: One fluoroscopic image is obtained intraoperatively during injection of the cystic duct rem nant after cholecystectomy. There are no filling defects to suggest retained stones. The common duct is not dilated. Fluoroscopy time 6 seconds. IMPRESSION: 1. No evidence of retained stones. Electronically signed by: Ledy Garcia MD (06/21/2021 8:25 AM) [id number]
--- NOTE | 2021-06-21 08:37 | PDOC4 ---
Operative Note Operative Note Operative Note: Preoperative Diagnosis: Biliary dyskinesia Postoperative Diagnosis: Same Procedure: Laparoscopic cholecystectomy with intraoperative cholangiogram Surgeons: David Cattle Shipper: Tita BEARD Anesthesia: Gen. Estimated Blood Loss: 10 mL Specimen: Gallbladder to pathology Drains: None Complications: None Indications: The patient is a 60-year-old male who underwent a GI evaluation revealing biliary dyskinesia. Surgical treatment was offered by means of a laparoscopic cholecystectomy. The risks of surgery were discussed which include bleeding, infection, bile duct injury, bile leak, pain, the potential for additional surgeries or procedures. The patient understands and would like to proceed. Description: The patient was taken to the operating room and laid supine on the operating table. General anesthesia was performed. The abdomen was prepped with ChloraPrep and draped in a standard surgical fashion. A small infraumbilical incision was made with a scalpel. The Veress needle was then inserted and a pneumoperitoneum was then created. A 5 mm trocar was then inserted and the laparoscope was introduced. In the upper midabdomen a 5 mm trocar was inserted and in the right upper quadrant two 2.3 mm mini lap graspers were inserted. The gallbladder was retracted cephalad. The cystic duct was dissected free from surrounding tissues. One clip was placed on the duct near the gallbladder junction. An opening was made in the duct and a cholangiocatheter placed within and secured with a clip. Using contrast dye and fluoroscopy an intraoperative cholangiogram was performed that appeared unremarkable. The clip and catheter were then withdrawn. Three clips were plac ed on the cystic duct and it was divided. The cystic artery was then identified, dissected free, doubly clipped and divided as well. The gallbladder was then mobilized away from the liver with cautery. The umbilical 5 millimeter trocar was exchanged for an 11 millimeter trocar. The gallbladder was then placed in an endoscopic bag and extracted at the umbilical trocar site. The fascia there was closed with an 0 Vicryl suture and infiltrated with 0.5% marcaine. All blood and irrigation fluid was suctioned and hemostasis was good. The remaining ports were removed and the pneumoperitoneum was relieved. The skin incisions were closed using 4-0 Monocryl suture. Steri-Strips and dressings were then applied. The patient tolerated the procedure well and was sent to the recovery room in stable condition. At the end of the case all counts were correct. PERFECTO ASIF MD Jun 21, 2021 08:37
[2021-06-21] MEDS ORDERED: HYDR-2761 PO (08:39)
--- NOTE | 2021-06-21 08:42 | DISCH ---
DISCHARGE INSTRUCTIONS Condition on Discharge Condition on Discharge: Stable Activity After Discharge Activity Instructions for Disc: Other, see below (no lifting over 20 lbs X 2 weeks) Driving Instructions after Dis: Other, see below (No driving if taking pain meds) Diet after Discharge Diet after Discharge: Regular Wound Incision Care Wound/Incision Care: Other, see below (may remove bandaids tomorrow and shower) Follow-Up Follow up with: Dr Asif in 2 weeks, call for appointment [phone] PERFECTO ASIF MD Jun 21, 2021 08:42
[2021-06-21] MEDS ORDERED: HYDROcodone/APAP 5/325MG 1 TAB TABLET PO ONE (09:00)
[2021-06-21 09:04] VITALS: BP 129/76
--- NOTE | 2021-06-23 20:22 | PATHOLOGY ---
[facility] Accession Number: [id number] . 01 Material submitted: . gallbladder - GALLBLADDER . 01 Clinical history: . BILIARY DYSKINESIA LAP CHOLECYSTECTOMY . 02 Diagnosis: Gallbladder, laparoscopic cholecystectomy: - Chronic cholecystitis, mild. (JPM:anitra; 06/23/2021) S 06/23/2021 1514 Local . 02 Comment: There are no calculi identified within the gallbladder lumen or specimen container. Sections of the gallbladder show mild chronic inflammation. There is no evidence of malignancy. (JPM:anitra; 06/23/2021) . 02 Electronically signed: . Abdoulaye Morris MD, Pathologist NPI- [id number] . 01 Gross description: . Fixative: Formalin Labeled: Gallbladder Specimen received: Intact gallbladder Dimensions: 7.8 x 3.7 x 3.5 cm Serosa: Green-sanchez and slightly adipose covered Lymph node: None identified Mucosa: Velvety, bile-stained Average wall thickness: 0.1 cm Calculi: None present Abnormalities: None identified . A1- Clay Maker body, fundus, and the cystic duct margin. ([facility]; 06/22/2021) NRI/NRI 06/22/2021 1119 Local . 02 Pathologist provided ICD-10: K81.1 . 02 CPT . 989330 Specimen Comment: A courtesy copy of this report has been sent to [phone] Specimen Comment: Report sent to Performed at: 01 [facility] [address] [facility] [address] [place] [id number] MD Justus Ahumada MD Phone: [phone] Performed at: 02 [facility] [address] [place], [place] [id number] MD Abdoulaye Morris MD Phone: [phone]
== END 2021-06-21 09:33 | disposition home or self-care (01) ==
LOC: SURG 06:04
PROVIDERS: ATTEND Surgery
DX: K82.8 Other specified diseases of gallbladder (principal); K21.9 Gastro-esophageal reflux disease without esophagitis; F17.210 Nicotine dependence, cigarettes, uncomplicated; Z79.82 Long term (current) use of aspirin; Z79.899 Other long term (current) drug therapy; Z98.890 Other specified postprocedural states; Z72.89 Other problems related to lifestyle
CPT/HCPCS: 47563; 74300; A4213; A4314; A4364; A4930; A6219; C1887; J0330; J0690; J1100; J1885; J2405; J2704; J2710; J3010; J3490; Q9967; A4223; A4452; A4657